=== PATIENT | male | born 1990 | race Caucasian/White ===

== ENCOUNTER 2019-03-25 15:40 | Emergency (ER) | payer MEDICARE, MEDICAID ==
[~2019-03-25] VITALS: Ht 170.2 cm; Wt 72.1 kg
--- NOTE | 2019-03-25 15:50 | NUR ---
PT IS A/OX4, PRESENTS TO THE ER IN MOTORIZED W/C, REQUESTING "DETOX SERVICES". PT PRESENTS W/ STRONG ETOH ODOR. PT IS VERY ARGUMENTATIVE AND DIFFICULT TO OBTAIN MEDICAL HX. PT DENIES SI & HI. PT IS ABLE TO SELF-AMBULATE DESPITE THE USE OF MOTORIZED W/C. PT DENIES PAIN, C/P, SOB, N/V/D, DIZZINESS, HEADACHE.
--- NOTE | 2019-03-25 15:54 | NUR ---
GULSHAN ARGUETA AT BEDSIDE FOR MSE.
[2019-03-25 16:13] LABS: BASOPHILS # (AUTO) 0.1 K/uL (0.0-8.0); BASOPHILS % (AUTO) 0.7 % (0.0-2.0); EOSINOPHILS # (AUTO) 0.2 K/uL (0.0-0.7); EOSINOPHILS % (AUTO) 3.3 % (0.0-7.0); HEMATOCRIT 42.8 % (36.7-47.1); HEMOGLOBIN 14.7 g/dL (12.5-16.3); LYMPHOCYTES # (AUTO) 2.2 K/uL (20.0-40.0); LYMPHOCYTES % (AUTO) 29.3 % (20.5-51.5); MEAN CORPUSCULAR HEMOGLOBIN 34.4 uug (23.8-33.4); MEAN CORPUSCULAR HGB CONC 34 g/dL (32.5-36.3); MEAN CORPUSCULAR VOLUME 99.9 fL (73.0-96.2); MONOCYTES # (AUTO) 0.5 K/uL (2.0-10.0); MONOCYTES % (AUTO) 7.1 % (0.0-11.0); NEUTROPHILS # (AUTO) 4.4 K/uL (1.8-8.9); NEUTROPHILS % (AUTO) 59.6 % (38.5-71.5); PLATELET COUNT (AUTO) 168 K/uL (152-348); RED BLOOD CELL COUNT(AUTO) 4.29 MIL/uL (4.06-5.63); WHITE BLOOD COUNT (AUTO) 7.5 K/uL (3.6-10.2)
--- NOTE | 2019-03-25 16:19 | NUR ---
PT REQUESTED FOR IN & OUT CATHETER STATING HE HAS URINARY INCONTINENCE. ORDER FOR IN & OUT CATHER WAS OBTAINED FROM THE ER MD BUT PT WAS ABLE TO SELF-AMBULATE TO THE RESTROOM AND URINATE.
[2019-03-25 16:21] LABS: CARBON DIOXIDE 23 mmol/L (21-32); CHLORIDE 108 mmol/L (98-107); CREATININE 0.7 mg/dL (0.6-1.3); GLUCOSE 96 mg/dL (74-106); POTASSIUM 4.1 mmol/L (3.5-5.1); UREA NITROGEN, BLOOD 6 mg/dL (7-18)
[2019-03-25] MEDS ORDERED: DEPAKOTE (16:21)
[2019-03-25] MEDS ORDERED: GABA800T11 PO (16:21)
[2019-03-25] MEDS ORDERED: PARO25TA16 PO (16:21)
[2019-03-25] MEDS ORDERED: IBUP-1957 PO (16:21)
[2019-03-25 16:24] LABS: *BILIRUBIN,URIN NEGATIVE (NEGATIVE); *BLOOD, URINE NEGATIVE (NEGATIVE); *CLARITY,URINE CLEAR (CLEAR); *COLOR,URINE LIGHT YELLOW (YELLOW); *KETONES,URINE NEGATIVE (NEGATIVE); *UROBILINOGEN,URINE 0.2 E.U./dl (NORMAL); LEUKOCYTE ESTERASE ,URINE NEGATIVE (NEGATIVE); NITRITE, URINE NEGATIVE (NEGATIVE); PH,URINE 6.5 (5.0-8.0); UGLUCOSE NEGATIVE (NEGATIVE)
[2019-03-25 16:27] LABS: ALANINE AMINOTRANSFERASE 15 U/L (16-63); ALKALINE PHOSPHATASE 57 U/L (50-136); ASPARTATE AMINOTRANSFERASE 18 U/L (15-37); BILIRUBIN,DIRECT 0.1 mg/dL (0.0-0.2); BILIRUBIN,TOTAL 0.3 mg/dL (0.2-1.0); ETHANOL 206 MG/DL (0-0); TOTAL PROTEIN, SERUM 7.1 g/dL (6.4-8.2)
[2019-03-25 16:32] LABS: *AMPHETAMINE, URINE NEGATIVE (NEGATIVE); *BARBITURATE, URINE NEGATIVE (NEGATIVE); *CANNABINOID, URINE POSITIVE (NEGATIVE); *COCCAINE, URINE NEGATIVE (NEGATIVE); *OPIATE, URINE NEGATIVE (NEGATIVE); *PHENCYCLIDINE SCREEN,URINE NEGATIVE (NEGATIVE)
--- NOTE | 2019-03-25 16:43 | NUR ---
PT SLEEPING COMFORTABLY IN BED. NAD.
--- NOTE | 2019-03-25 18:36 | NUR ---
PT WAS ABLE TO SELF-AMBULATE TO THE RESTROOM W/O DIFFICULTY. Patient discharged to home in stable conditon. Written and verbal after care instructions given. Patient verbalizes understanding of instructions. ALL BELONGINGS W/ PT. PT SELF-AMBULATED TO THE MOTORIZED W/C AND LEFT ON THE W/C.
[2019-03-25 18:37] VITALS: BP 118/80
== END 2019-03-25 18:38 | disposition home or self-care (01) ==
LOC: ER 15:45
DX: F10.129 Alcohol abuse with intoxication, unspecified (principal); F32.9 Major depressive disorder, single episode, unspecified; Z79.1 Long term (current) use of non-steroidal anti-inflammatories (NSAID); Z79.899 Other long term (current) drug therapy; Y90.7 Blood alcohol level of 200-239 mg/100 ml
CPT/HCPCS: 36415; 80048; 80076; 80307; 81001; 85025; 99283; G0480; A4663